=== PATIENT | male | born 1950 | race Caucasian/White ===

== ENCOUNTER 2019-05-05 03:00 | Emergency (ER) | payer MEDICARE, BC ==
--- NOTE | 2019-05-05 03:16 | EDM.PDOC ---
ED HPI GENERAL MEDICAL PROBLEM - General Chief Complaint: Flank Pain Stated Complaint: MEDICAL VIA [facility] Time Seen by Provider: 05/05/19 03:15 Source of Information: Reports: Patient History Limitations: Reports: No Limitations - History of Present Illness INITIAL COMMENTS - FREE TEXT/NARRATIVE: pt developed flank pain suddenly about 12 thirty. The pain was unbearable. For that reason he called a ambulance. He is going to the br very frequently. Last nite he was up about 13 times. Onset: Today, Sudden Duration: Hour(s): Location: Reports: Abdomen, Back Associated Symptoms: Reports: No Other Symptoms - Related Data Allergies Allergy/AdvReac Type Severity Reaction Status Date / Time No Known Allergies Allergy Verified 05/05/19 03:01 Home Meds: Home Meds Metoprolol Tartrate [Lopressor] 50 mg PO BID 01/28/14 [History] Aspirin [Halfprin] 81 mg PO DAILY 05/05/19 [History] Cinnamon Bark [Cinnamon] 1 tab PO DAILY 05/05/19 [History] Tamsulosin [Flomax] 2 tab PO BEDTIME 05/05/19 [History] Ubidecarenone [Co Q-10] 1 tab PO DAILY 05/05/19 [History] amLODIPine Besylate/Benazepril [Amlodipine-Benazepril 10-20 MG] 1 tab PO DAILY 05/05/19 [History] ED ROS GENERAL - Review of Systems Review Of Systems: See Below Constitutional: Reports: No Symptoms HEENT: Reports: No Symptoms Respiratory: Reports: No Symptoms Cardiovascular: Reports: No Symptoms Endocrine: Reports: No Symptoms GI/Abdominal: Reports: Abdominal Pain, Other ( severe rt flank pain. ) : Reports: Dysuria, Frequency Musculoskeletal: Reports: No Symptoms Skin: Reports: No Symptoms ED EXAM,LOWER BACK PAIN/INJURY - Physical Exam Exam: See Below Text/Narrative:: pt arrived with bloody urine and ahistory of very severe flank pain that lasted for about 2 hours. Exam Limited By: No Limitations General Appearance: Alert, Anxious, Severe Distress Ears: Normal TMs Nose: Normal Inspection Throat/Mouth: Normal Inspection Head: Atraumatic Neck: Normal Inspection Respiratory/Chest: No Respiratory Distress Cardiovascular: Regular Rate, Rhythm GI/Abdominal: Soft, Non-Tender (Male) Exam: Deferred Rectal (Males) Exam: Deferred Back Exam: Normal Inspection Extremities: Normal Inspection Neurological: Alert Psychiatric: Normal Affect Course - Vital Signs Last Recorded V/S: Last Vital Signs Temp 35.7 C 05/05/19 03:04 Pulse 80 05/05/19 03:04 Resp 16 05/05/19 03:04 BP 170/70 H 05/05/19 03:04 Pulse Ox 94 L 05/05/19 03:04 - Orders/Labs/Meds Labs: Laboratory Tests 05/05/19 05/05/19 05/05/19 Range/Units 03:22 03:22 03:41 WBC 8.6 (4.5-11.0) K/uL RBC 4.35 (4.30-5.90) M/uL Hgb 9.4 L D (12.0-15.0) g/dL Hct 31.4 L (40.0-54.0) % MCV 72 L (80-98) fL MCH 22 L (27-31) pg MCHC 30 L (32-36) % Plt Count 241 (150-400) K/uL Neut % (Auto) 81 H (36-66) % Lymph % (Auto) 7 L (24-44) % [place] % (Auto) 9 H (2-6) % Eos % (Auto) 3 (2-4) % Baso % (Auto) 0 (0-1) % Sodium 135 L (140-148) mmol/L Potassium 4.4 (3.6-5.2) mmol/L Chloride 100 (100-108) mmol/L Carbon Dioxide 25 (21-32) mmol/L Anion Gap 14.4 H (5.0-14.0) mmol/L BUN 29 H D (7-18) mg/dL Creatinine 1.2 (0.8-1.3) mg/dL Est Cr Clr Drug Dosing 61.01 mL/min Estimated GFR (MDRD) 60 (>60) Glucose 167 H (74-106) mg/dL Calcium 8.9 D (8.5-10.1) mg/dL Total Bilirubin 0.3 (0.2-1.0) mg/dL AST 32 (15-37) U/L ALT 20 (12-78) U/L Alkaline Phosphatase 84 (46-116) U/L Total Protein 7.5 (6.4-8.2) g/dL Albumin 3.1 L (3.4-5.0) g/dL Globulin 4.4 H (2.3-3.5) g/dL Albumin/Globulin Ratio 0.7 L (1.2-2.2) Urine Color Red A (YELLOW) Urine Appearance Cloudy A (CLEAR) Urine pH 6.0 (5.0-8.0) Ur Specific [place] 1.020 (1.008-1.030) Urine Protein 100 H (NEGATIVE) mg/dL Urine Glucose (UA) Negative (NEGATIVE) mg/dL Urine Ketones Negative (NEGATIVE) mg/dL Urine Occult Blood Large H (NEGATIVE) Urine Nitrite Positive H (NEGATIVE) Urine Bilirubin Small H (NEGATIVE) Urine Urobilinogen 0.2 (0.2-1.0) EU/dL Ur Leukocyte Esterase Small H (NEGATIVE) Urine RBC >100 H (0-5) Urine WBC 20-30 H (0-5) Ur Epithelial Cells Few Amorphous Sediment Not seen Urine Bacteria Moderate Urine Mucus Not seen Urine Other Meds: Medications Discontinued Medications Generic Name Dose Route Start Last Admin Trade Name Freq PRN Reason Stop Dose Admin Ceftriaxone Sodium 1 gm/ 0 gm 05/05/19 05:13 05/05/19 05:28 Lidocaine HCl 2.1 ml IM 05/05/19 05:14 1 inj ONETIME ONE Administration - Re-Assessments/Exams Free Text/Narrative Re-Assessment/Exam: 05/05/19 05:14 cat scan of the abdoman without contrast was done which showed a dilated rt ureter so he could have passed a stone. a culture was obtained. Departure - Departure Time of Disposition: 07:05 Disposition: Home, Self-Care 01 Condition: Fair Clinical Impression: Hematuria, UTI (urinary tract infection), Hydroureter, right - Discharge Information Instructions: Urinary Tract Infection, Adult, [id number] Referrals: PCP,None [Primary Care Provider] - Forms: ED Department Discharge Care Plan Goals: push fluids, cipro 500mg bid, send a copy of the cat scan and urine with the pt. If the blood in the urine is persistent he should notify the urologist that he sees in [facility].
--- NOTE | 2019-05-05 04:55 | CRLCT ---
Examination / Procedure: CT Abdomen/Pelvis Indication: Right flank pain. Hematuria. Comparison: None available Technique: Contiguous axial CT images of the abdomen and pelvis were acquired without IV contrast. Coronal and sagittal reformations generated and reviewed. Findings: Lack of IV contrast limits evaluation of the solid abdominal organs. Status post left hemicolectomy. There is an ostomy in the right lower quadrant. There is some irregular calcified soft tissue anterior to the sacrum with ill-defined margins. It measures approximately 6.5 x 2.9 x 6.4 cm. There is no bowel obstruction. There is no bowel wall thickening. Diverticulosis in the remaining portions of the right colon. Appendix not visualized. No secondary signs of appendicitis. There is moderate right hydronephrosis and hydroureter. The ureter is distended to the level of the pelvis where it extends into or adjacent to the calcified presacral soft tissues. The very distal right ureter is identified entering the bladder. That portion of the ureter is decompressed. Left kidney demonstrates no hydronephrosis and the left ureter is patent to the bladder. Liver/bile ducts/gallbladder: Unremarkable noncontrast appearance of liver. Normal gallbladder. Pancreas: Unremarkable. Spleen: Unremarkable. Adrenals: Unremarkable. Lymph nodes: No enlarged mesenteric, retroperitoneal, pelvic, or inguinal lymphadenopathy. Vasculature: No aortic aneurysm. Lower chest: Visualized lung bases are clear. Bones: No acute or aggressive appearing osseous lesions. Impression: 1. Status post left hemicolectomy and end colostomy in the right lower quadrant. In the presacral region there is some irregular soft tissue identified with multiple calcifications. This could represent scar tissue or disease recurrence. Recommend correlation with prior imaging to assess the stability of this finding. 2. Moderate right hydronephrosis and hydroureter with the ureter distended to the level of the presacral soft tissue. This suggests that the ureter is compressed or obstructed in this region. Please note that all CT scans at this facility use dose modulation, iterative reconstruction, and/or weight-based dosing when appropriate to reduce radiation dose to as low as reasonably achievable. Dictated by Vince Richmond MD @ May 05 2019 5:40PM Signed by Dr. Vince Ricmhond @ May 05 2019 5:55PM
[2019-05-05] MEDS ORDERED: cefTRIAXone 1 GM, Lidocaine 1% 2.1 ML IM ONE ×2 (05:13)
== END 2019-05-05 07:05 | disposition home or self-care (01) ==
LOC: JP.ED 03:00
DX: N13.4 Hydroureter (principal); N39.0 Urinary tract infection, site not specified; R31.9 Hematuria, unspecified; Z79.899 Other long term (current) drug therapy; Z79.82 Long term (current) use of aspirin
CPT/HCPCS: 36415; 74176; 80053; 81001; 85025; 87086; 96372; 99284; J0696; J2001

== ENCOUNTER 2021-01-13 10:31 | Emergency (ER) | payer MEDICARE, BC ==
--- NOTE | 2021-01-13 11:29 | EDM.PDOC ---
ED HPI GENERAL MEDICAL PROBLEM - General Chief Complaint: Abdominal Pain Stated Complaint: ABD PAIN VIA [facility] Time Seen by Provider: 01/13/21 11:10 Source of Information: Reports: Patient, EMS, Old Records, RN History Limitations: Reports: No Limitations - History of Present Illness INITIAL COMMENTS - FREE TEXT/NARRATIVE: 70 yo male developed abdominal pain in the night last night and decided he might have another bowel obstruction so called EMS for transport here. He has a colostomy and it was not filling until mid way through his transport. He got Zofran and Fentanyl per EMS and feels better now. No vomiting. Onset: Today, Gradual Onset Date: 01/13/21 Onset Time: 03:00 Duration: Hour(s):, Improving Location: Reports: Abdomen Quality: Reports: Ache Severity: Moderate Improves with: Reports: Other (time vs medication) Worsens with: Reports: Other (unsure) Context: Reports: Other (See HPI) Associated Symptoms: Reports: No Other Symptoms. 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: Other (see below) (See HPI) Abdomen Pain Score (Numeric/FACES): 0 - Related Data Allergies Allergy/AdvReac Type Severity Reaction Status Date / Time No Known Allergies Allergy Verified 05/05/19 03:01 Home Meds: Home Meds Metoprolol Tartrate [Lopressor] 100 mg PO BID 01/28/14 [History] Aspirin [Halfprin] 81 mg PO DAILY 05/05/19 [History] Cinnamon Bark [Cinnamon] 1 tab PO DAILY 05/05/19 [History] Tamsulosin [Flomax] 2 tab PO BEDTIME 05/05/19 [History] Ubidecarenone [Co Q-10] 1 tab PO DAILY 05/05/19 [History] amLODIPine Besylate/Benazepril [Amlodipine-Benazepril 10-20 MG] 1 tab PO DAILY 05/05/19 [History] Ferrous Sulfate [Feosol] 325 mg PO DAILY 01/13/21 [History] Nystatin 100,000 unit PO ASDIRECTED 01/13/21 [History] Pantoprazole [ProTONIX] 40 mg PO DAILY 01/13/21 [History] Sertraline [Zoloft] 100 mg PO DAILY 01/13/21 [History] metFORMIN [Glucophage XR] 500 mg PO DAILY 01/13/21 [History] Past Medical History Cardiovascular History: Reports: High Cholesterol, Hypertension Gastrointestinal History: Reports: Bowel Obstruction, Other (See Below) Other Gastrointestinal History: colon ca Genitourinary History: Reports: BPH, UTI, Recurrent Oncologic (Cancer) History: Reports: Colon, Other (See Below) Other Oncologic History: colon cancer in 1990 - Infectious Disease History Infectious Disease History: Reports: Other (See Below) Other Infectious Disease History: states he does not know - Past Surgical History HEENT Surgical History: Reports: Tonsillectomy GI Surgical History: Reports: Appendectomy, Colon, Colostomy, Hernia Repair/Other, Other (See Below) Other GI Surgeries/Procedures: colon resection Social & Family History - Tobacco Use Tobacco Use Status *Q: Never Tobacco User - Caffeine Use Caffeine Use: Reports: Coffee - Recreational Drug Use Recreational Drug Use: No ED ROS GENERAL - Review of Systems Review Of Systems: See Below Constitutional: Denies: Fever, Chills HEENT: Reports: No Symptoms Respiratory: Reports: No Symptoms Cardiovascular: Reports: No Symptoms GI/Abdominal: Reports: Abdominal Pain, Constipation (colostomy bag was not filling for several hrs). Denies: Black Stool, Bloody Stool, Diarrhea, Distension, Hematemesis, Hematochezia, Melena, Nausea, Vomiting : Reports: No Symptoms Skin: Reports: No Symptoms ED EXAM, GI/ABD - Physical Exam Exam: See Below Exam Limited By: No Limitations General Appearance: Alert, WD/WN, No Apparent Distress Eyes: Bilateral: Normal Appearance Ears: Normal External Exam, Normal Canal, Hearing Grossly Normal Nose: Normal Inspection, No Blood Throat/Mouth: Normal Inspection, Normal Lips, Normal Oropharynx, Normal Voice, No Airway Compromise Head: Atraumatic, Normocephalic Neck: Normal Inspection Respiratory/Chest: No Respiratory Distress, Lungs Clear, Normal Breath Sounds, No Accessory Muscle Use Cardiovascular: Regular Rate, Rhythm, No Edema GI/Abdominal Exam: Normal Bowel Sounds, Soft, Non-Tender, No Distention, Other (colostomy bag has a moderate amt of formed stool in it now. ). No: Distended, Tender Extremities: Normal Inspection, Normal Range of Motion, Non-Tender, No Pedal Edema Neurological: Alert, Oriented, CN II-XII Intact, Normal Cognition, No Motor/Sensory Deficits Psychiatric: Normal Affect, Normal Mood Skin Exam: Warm, Dry, Intact, Normal Color, No Rash Course - Vital Signs Last Recorded V/S: Last Vital Signs Temp 36.5 C 01/13/21 10:32 Pulse 69 01/13/21 11:18 Resp 16 01/13/21 11:18 BP 140/62 01/13/21 11:18 Pulse Ox 98 01/13/21 11:18 - Orders/Labs/Meds Orders: Active Orders 24 hr Category Date Time Status Docusate Sodium [Colace] Med 01/13/21 12:00 Active 200 mg PO DAILY Medication Orders Docusate Sodium (Docusate Sodium 100 Mg Cap) 200 mg PO DAILY GIULIANO Last Admin: 01/13/21 12:11 Dose: 200 mg Documented by: HIRO Meds: Medications Generic Name Dose Route Start Last Admin Trade Name [place] PRN Reason Stop Dose Admin Docusate Sodium 200 mg 01/13/21 12:00 01/13/21 12:11 Docusate Sodium 100 Mg Cap PO 200 mg DAILY GIULIANO Administration - Radiology Interpretation Free Text/Narrative:: Flat/upright abdominal X-rays-neg - Re-Assessments/Exams Free Text/Narrative Re-Assessment/Exam: 01/13/21 13:40 doing well, willing to go home. Departure - Departure Time of Disposition: 13:41 Disposition: Home, Self-Care 01 Condition: Good Clinical Impression: Resolved abdominal pain - Discharge Information *PRESCRIPTION DRUG MONITORING PROGRAM REVIEWED*: Not Applicable *COPY OF PRESCRIPTION DRUG MONITORING REPORT IN PATIENT HEBER: Not Applicable Referrals: PCP,None [Primary Care Provider] - Forms: ED Department Discharge Additional Instructions: Drink ample fluids. Recheck as needed. Sepsis Event Note (ED) - Evaluation Sepsis Screening Result: No Definite Risk - Focused Exam Vital Signs: Vital Signs Temp Pulse Resp BP Pulse Ox 01/13/21 11:18 69 16 140/62 98 01/13/21 10:32 36.5 C 70 16 129/69 99 - My Orders Last 24 Hours: My Active Orders 01/13/21 12:00 Docusate Sodium [Colace] 200 mg PO DAILY - Assessment/Plan Last 24 Hours: My Active Orders 01/13/21 12:00 Docusate Sodium [Colace] 200 mg PO DAILY
[2021-01-13] MEDS ORDERED: Docusate Sodium 100 MG Cap PO SCH (12:00)
--- NOTE | 2021-01-13 12:16 | CR ---
Abdomen 2V AP Flat Upright CLINICAL HISTORY: Abdominal pain FINDINGS: Small intestinal gas pattern is nonspecific. No free air is identified. There is moderate fecal retention in the right colon. There are atherosclerotic changes in the aorta. IMPRESSION: Nonacute intestinal gas pattern There is some fecal retention in the right colon
== END 2021-01-13 14:14 | disposition home or self-care (01) ==
LOC: JP.ED 10:31
DX: R10.9 Unspecified abdominal pain (principal); I10 Essential (primary) hypertension; N40.0 Benign prostatic hyperplasia without lower urinary tract symptoms; Z79.82 Long term (current) use of aspirin; Z79.84 Long term (current) use of oral hypoglycemic drugs; Z79.899 Other long term (current) drug therapy
CPT/HCPCS: 74019; 99284; A9270

== ENCOUNTER 2022-02-25 11:06 | Emergency (ER) | payer MEDICARE, BC ==
[2022-02-25] MEDS ORDERED: Docusate Sodium 100 MG Cap PO ONE (13:47)
== END 2022-02-25 15:13 | disposition home or self-care (01) ==
LOC: JP.ED 11:06
DX: N13.30 Unspecified hydronephrosis (principal); K59.00 Constipation, unspecified; E78.00 Pure hypercholesterolemia, unspecified; I10 Essential (primary) hypertension; Z79.899 Other long term (current) drug therapy; Z79.84 Long term (current) use of oral hypoglycemic drugs; Z90.49 Acquired absence of other specified parts of digestive tract
CPT/HCPCS: 74176; 99284; A9270

== ENCOUNTER 2023-02-01 05:21 | Emergency (ER) | payer MEDICARE, BC | END 2023-02-01 10:53 | disposition home or self-care (01) | LOC: JP.ED 05:21 | DX: K94.09 Other complications of colostomy (principal); E78.00 Pure hypercholesterolemia, unspecified; I10 Essential (primary) hypertension; N40.0 Benign prostatic hyperplasia without lower urinary tract symptoms; Z79.899 Other long term (current) drug therapy | CPT/HCPCS: 99284 ==